=== PATIENT | female | born 1960 | race American Indian/Alaskan Native ===

== ENCOUNTER 2018-01-27 22:40 | Emergency (ER) | payer OTHER ==
[2018-01-27] MEDS: ATROVENT IH ONE (22:48)
[2018-01-27] MEDS ORDERED: MORPHINE IV ONE (23:00)
[2018-01-27] MEDS ORDERED: ZOFRAN IV ONE (23:00)
[2018-01-27] MEDS ORDERED: XOPENEX IH ONE (23:05)
[2018-01-27] MEDS ORDERED: ATROVENT IH ONE (23:06)
--- NOTE | 2018-01-27 23:08 | Emergency Department Report ---
ED Chest Pain HPI - General Chief Complaint: Dyspnea/Respdistress Stated Complaint: COPD Time Seen by Provider: 01/27/18 22:55 Source: patient Mode of arrival: Ambulatory Limitations: No Limitations - History of Present Illness Initial Comments: Patient is a 57-year-old female history of COPD. Patient presented with three- day history of left-sided chest pain, sharp in nature go to her back associated with shortness of breath. Patient denied any fever. No nausea no vomiting. MD Complaint: chest pain -: Gradual, days(s) Onset: during rest Pain Location: left chest Severity: moderate Severity scale (0 -10): 7 Quality: sharp Consistency: intermittent Improves With: remaining still Worsens With: movement Other Symptoms: cough. denies: fever, syncope - Related Data Home Medications Medication Instructions Recorded Confirmed Last Taken ALBUTEROL Inhaler [ProAir HFA 2 puff IH QID PRN 08/06/13 01/27/18 11/17/15 Inhaler] ALBUTEROL NEB's [Proventil 0.083% 2.5 mg IH TID PRN 08/06/13 01/27/18 11/17/15 NEBS] Triamter/Hctz 37.5-25 mg 1 tab PO QDAY 01/27/18 01/27/18 Unknown [Maxzide-25] Previous Rx's Medication Instructions Recorded Last Taken Type predniSONE [Deltasone] 40 mg PO QDAY #60 tablet 08/10/13 11/17/15 Rx Allergies Allergy/AdvReac Type Severity Reaction Status Date / Time No Known Allergies Allergy Verified 01/27/18 22:44 Heart Score - HEART Score History: Moderately suspicious EKG: Non-specific Age: 45-65 Risk factors: 1-2 risk factors Troponin: < normal limit HEART Score: 4 - Critical Actions Critical Actions: 4-6 pts:12-16.6% risk of adverse cardiac event. Should be admitted ED Review of Systems ROS: Stated complaint: COPD Other details as noted in HPI Comment: All other systems reviewed and negative Constitutional: denies: chills, fever Respiratory: cough, shortness of breath, SOB with exertion, SOB at rest, wheezing Cardiovascular: chest pain, dyspnea on exertion. denies: palpitations Gastrointestinal: denies: abdominal pain, nausea, vomiting, diarrhea, constipation, hematemesis, hematochezia Musculoskeletal: denies: back pain, joint swelling Neurological: denies: headache, weakness, numbness, paresthesias, confusion, abnormal gait ED Past Medical Hx - Past Medical History Hx Hypertension: Yes Hx COPD: Yes (no home O2) - Surgical History Additional Surgical History: Hysterectomy (partial). Hernia repair. Cervical spine surgery - Social History Smoking Status: Current Every Day Smoker Substance Use Type: None - Medications Home Medications: Home Medications Medication Instructions Recorded Confirmed Last Taken Type ALBUTEROL Inhaler [ProAir HFA 2 puff IH QID PRN 08/06/13 01/27/18 11/17/15 History Inhaler] ALBUTEROL NEB's [Proventil 0.083% 2.5 mg IH TID PRN 08/06/13 01/27/18 11/17/15 History NEBS] predniSONE [Deltasone] 40 mg PO QDAY #60 tablet 08/10/13 01/27/18 11/17/15 Rx Triamter/Hctz 37.5-25 mg 1 tab PO QDAY 01/27/18 01/27/18 Unknown History [Maxzide-25] ED Physical Exam - General Limitations: No Limitations General appearance: alert, in no apparent distress - Head Head exam: Present: atraumatic, normocephalic, normal inspection - Eye Eye exam: Present: normal appearance, PERRL - ENT ENT exam: Present: normal exam, normal orophraynx, mucous membranes moist - Neck Neck exam: Present: normal inspection, full ROM. Absent: tenderness, meningismus, lymphadenopathy, thyromegaly - Respiratory Respiratory exam: Present: normal lung sounds bilaterally, wheezes, chest wall tenderness, prolonged expiratory. Absent: respiratory distress, rales, rhonchi , accessory muscle use, decreased breath sounds - Cardiovascular Cardiovascular Exam: Present: regular rate, normal rhythm, normal heart sounds - GI/Abdominal GI/Abdominal exam: Present: soft, normal bowel sounds. Absent: distended, tenderness, guarding, rebound, rigid, organomegaly, mass, bruit, pulsatile mass - Extremities Exam Extremities exam: Present: normal inspection, full ROM, normal capillary refill - Back Exam Back exam: Present: normal inspection, full ROM. Absent: tenderness, CVA tenderness (L) - Neurological Exam Neurological exam: Present: alert, oriented X3, CN II-XII intact, normal gait - Skin Skin exam: Present: warm, intact, normal color ED Course Vital Signs 01/27/18 01/27/18 01/27/18 22:44 23:25 23:33 Temperature 98.1 F Pulse Rate 99 H Respiratory 22 22 22 Rate Blood Pressure 136/89 O2 Sat by Pulse 96 96 Oximetry - Reevaluation(s) Reevaluation #1: 01/28/18 00:43 Patient stated that she is feeling much better, has been resolved. No shortness of breath. I advised patient to follow-up with her primary care physician in the next 2-3 days. ED Medical Decision Making - Lab Data Result diagrams: 01/27/18 23:02 01/27/18 23:02 - EKG Data -: EKG Interpreted by [place] EKG shows normal: sinus rhythm Rate: normal - EKG Data Interpretation: no acute changes - Radiology Data Radiology results: report reviewed - Medical Decision Making Referring Physician: INES TOLLIVER Patient Name: SANA RIVAS Date of : 1960 Sex: Female Report Date: 2018-01-28 Report Status: Finalized Findings [facility] [address] [place] [address] XRay Report Signed Patient: SANA RIVAS MR#: [id number] : 1960 Acct:[id number] Age/Sex: 57 / F ADM Date: 01/27/18 Loc: ED Attending Dr: Ordering Physician: INES TOLLIVER Date of Service: 01/27/18 Procedure(s): XR chest 1V ap Accession Number(s): [id number] cc: INES TOLLIVER Fluoro Time In Minutes: FINAL REPORT PROCEDURE: XR CHEST 1V AP TECHNIQUE: Chest radiograph anteroposterior view. CPT 98474 HISTORY: Shortness of breath COMPARISON: No prior studies are available for comparison. FINDINGS: Heart: Normal. Mediastinum/Vessels: Normal. Lungs/Pleural space: Normal. Bony thorax: No acute osseous abnormality. Life support devices: None. IMPRESSION: No acute cardiopulmonary abnormality. Transcribed By: [facility] Dictated By: BARAK QUINN MD Electronically Authenticated By: BARAK QUINN MD Signed Date/Time: 01/28/18 0007 DD/ TD/TT: 01/28/186 Critical care attestation.: If time is entered above; I have spent that time in minutes in the direct care of this critically ill patient, excluding procedure time. ED Disposition Clinical Impression: Chest pain, Acute bronchitis, Costochondritis, acute Disposition: DC-01 TO HOME OR SELFCARE Is pt being admited?: No Condition: Stable Instructions: Chest Pain (ED), Acute Bronchitis (ED), Costochondritis (ED) Referrals: CEM CLAROS MD [Primary Care Provider] - 3-5 Days
[2018-01-27 23:34] LABS: BUN/Creatinine Ratio 24; Blood Urea Nitrogen 17 mg/dL (7-17); Calcium 8.9 mg/dL (8.4-10.2); Hemolysis Index 15
[2018-01-27 23:51] LABS: Basophils # (Auto) 0.1 K/mm3 (0.0-0.1); Basophils % (Auto) 0.9 % (0.0-1.8); Eosinophils # (Auto) 0.5 K/mm3 (0.0-0.4); Eosinophils % (Auto) 3.9 % (0.0-4.3); Hematocrit 38.6 % (30.3-42.9); Hemoglobin 12.6 gm/dl (10.1-14.3); Lymphocytes # (Auto) 2.3 K/mm3 (1.2-5.4); Lymphocytes % (Auto) 19.5 % (13.4-35.0); Mean Corpuscular HGB Conc 33 % (30-34); Mean Corpuscular Hemoglobin 27 pg (28-32); Mean Corpuscular Volume 84 fl (79-97); Monocytes # (Auto) 0.7 K/mm3 (0.0-0.8); Monocytes % (Auto) 5.8 % (0.0-7.3); Platelet Count 341 K/mm3 (140-440); Red Blood Count 4.63 M/mm3 (3.65-5.03)
[2018-01-28 00:04] LABS: INR 0.83 (0.87-1.13)
--- NOTE | 2018-01-28 00:12 | XRay Report ---
FINAL REPORT PROCEDURE: XR CHEST 1V AP TECHNIQUE: Chest radiograph anteroposterior view. CPT 32659 HISTORY: Shortness of breath COMPARISON: No prior studies are available for comparison. FINDINGS: Heart: Normal. Mediastinum/Vessels: Normal. Lungs/Pleural space: Normal. Bony thorax: No acute osseous abnormality. Life support devices: None. IMPRESSION: No acute cardiopulmonary abnormality.
[2018-01-28] MEDS ORDERED: LEVAQUIN PO ONE (00:47)
[2018-01-28 04:15] VITALS: BP 138/75
[2018-01-28] MEDS ORDERED: XOPENEX IH ONE (06:46)
[2018-01-28] MEDS: ATROVENT IH ONE (06:48)
== END 2018-01-28 04:15 | disposition home or self-care (01) ==
LOC: ED 22:40
DX: J20.9 Acute bronchitis, unspecified (principal); J44.0 Chronic obstructive pulmonary disease with (acute) lower respiratory infection; M94.0 Chondrocostal junction syndrome [Tietze]; I10 Essential (primary) hypertension; F17.200 Nicotine dependence, unspecified, uncomplicated; Z90.710 Acquired absence of both cervix and uterus
CPT/HCPCS: 36415; 71045; 80048; 83880; 84484; 85025; 85379; 85610; 85730; 87040; 93005; 93010; 94640; 96374; 96375; 99284; J2270; J2405; J2930

== ENCOUNTER 2018-07-08 05:52 | Emergency (ER) | payer OTHER ==
[2018-07-08] MEDS ORDERED: TORADOL ONE (06:08)
[2018-07-08] MEDS ORDERED: TORADOL IM ONE (06:18)
--- NOTE | 2018-07-08 07:12 | XRay Report ---
FINAL REPORT EXAM: XR HAND 2V RT HISTORY: right hand pain COMPARISONS: None. FINDINGS: AP and lateral views right hand Suggested mild motion artifact. No fracture, gross malalignment or deformity identified in the right hand. Diffuse mild interphalangeal osteoarthrosis. No erosion or abnormal soft tissue calcification. IMPRESSION: No fracture or gross malalignment in the right hand.
--- NOTE | 2018-07-08 07:13 | XRay Report ---
FINAL REPORT EXAM: XR FOREARM RT HISTORY: Right mid forarm pain COMPARISONS: None. FINDINGS: AP and lateral views right forearm The radius and ulna appear intact. No gross malalignment or deformity. No fracture or periosteal reaction identified. No abnormal soft tissue calcification. IMPRESSION: Intact appearance of the right radius and ulna.
--- NOTE | 2018-07-08 08:21 | Emergency Department Report ---
ED Upper Extremity Inj HPI - General Chief Complaint: Extremity Injury, Upper Stated Complaint: LT ARM PAIN Time Seen by Provider: 07/08/18 07:19 Source: patient Mode of arrival: Ambulatory Limitations: No Limitations - History of Present Illness Initial Comments: This is a 58-year-old -[place] female who presents with pain to right hand and wrist on awakening this morning. Patient states she woke up out of sleep around 2 AM with severe pain to right wrist and hand. Patient states it was painful to move wrist and pain was 10 out of 10 on pain scale. Patient describes pain as sharp and constant intensity. 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 Patient states pain is shooting from right wrist to hand. Pain is aggravated by movement. She denies injury, swelling, deformity, warmth, numbness or tingling. Complaint: Injury to:: right, wrist -: This morning Time: 02:00 Other Extremity Injury: Wrist: Right Other Injuries: none Handedness: right Place: home Severity scale (0 -10): 10 Improves With: none Worsens With: movement of extremity Associated Symptoms: denies other symptoms - Related Data Home Medications Medication Instructions Recorded Confirmed Last Taken ALBUTEROL Inhaler [ProAir HFA 2 puff IH QID PRN 08/06/13 01/27/18 11/17/15 Inhaler] ALBUTEROL NEB's [Proventil 0.083% 2.5 mg IH TID PRN 08/06/13 01/27/18 11/17/15 NEBS] Triamter/Hctz 37.5-25 mg 1 tab PO QDAY 01/27/18 01/27/18 Unknown [Maxzide-25] Previous Rx's Medication Instructions Recorded Last Taken Type predniSONE [Deltasone] 40 mg PO QDAY #60 tablet 08/10/13 11/17/15 Rx ALBUTEROL Inhaler [ProAir HFA 2 puff IH QID PRN #1 inhalation 01/28/18 Unknown Rx Inhaler] Ondansetron [Zofran Odt] 4 mg PO Q8HR PRN #14 tab.rapdis 01/28/18 Unknown Rx levoFLOXacin [Levaquin TAB] 500 mg PO QDAY #6 tablet 01/28/18 Unknown Rx predniSONE [Prednisone] 20 mg PO DAILY #14 tablet 01/28/18 Unknown Rx traMADol [Ultram 50 MG tab] 50 mg PO Q4HR PRN #14 tablet 01/28/18 Unknown Rx Ibuprofen [Motrin 800 MG tab] 800 mg PO Q8HR PRN #15 tablet 07/08/18 Unknown Rx traMADol [Ultram 50 MG tab] 50 mg PO Q6HR PRN #10 tablet 07/08/18 Unknown Rx Allergies Allergy/AdvReac Type Severity Reaction Status Date / Time No Known Allergies Allergy Verified 01/27/18 22:44 ED Review of Systems ROS: Stated complaint: LT ARM PAIN Other details as noted in HPI ED Past Medical Hx - Past Medical History Hx Hypertension: Yes Hx COPD: Yes (no home O2) - Surgical History Additional Surgical History: Hysterectomy (partial). Hernia repair. Cervical spine surgery - Social History Smoking Status: Current Every Day Smoker Substance Use Type: None - Medications Home Medications: Home Medications Medication Instructions Recorded Confirmed Last Taken Type ALBUTEROL Inhaler [ProAir HFA 2 puff IH QID PRN 08/06/13 01/27/18 11/17/15 History Inhaler] ALBUTEROL NEB's [Proventil 0.083% 2.5 mg IH TID PRN 08/06/13 01/27/18 11/17/15 History NEBS] predniSONE [Deltasone] 40 mg PO QDAY #60 tablet 08/10/13 01/27/18 11/17/15 Rx Triamter/Hctz 37.5-25 mg 1 tab PO QDAY 01/27/18 01/27/18 Unknown History [Maxzide-25] ALBUTEROL Inhaler [ProAir HFA 2 puff IH QID PRN #1 inhalation 01/28/18 Unknown Rx Inhaler] Ondansetron [Zofran Odt] 4 mg PO Q8HR PRN #14 tab.rapdis 01/28/18 Unknown Rx levoFLOXacin [Levaquin TAB] 500 mg PO QDAY #6 tablet 01/28/18 Unknown Rx predniSONE [Prednisone] 20 mg PO DAILY #14 tablet 01/28/18 Unknown Rx traMADol [Ultram 50 MG tab] 50 mg PO Q4HR PRN #14 tablet 01/28/18 Unknown Rx Ibuprofen [Motrin 800 MG tab] 800 mg PO Q8HR PRN #15 tablet 08/27/18 Unknown Rx traMADol [Ultram 50 MG tab] 50 mg PO Q6HR PRN #10 tablet 07/08/18 Unknown Rx ED Physical Exam - General Limitations: No Limitations General appearance: alert, in no apparent distress - Respiratory Respiratory exam: Present: normal lung sounds bilaterally. Absent: respiratory distress - Cardiovascular Cardiovascular Exam: Present: regular rate, normal rhythm. Absent: systolic murmur, diastolic murmur, rubs, gallop - GI/Abdominal GI/Abdominal exam: Present: soft, normal bowel sounds - Expanded Upper Extremity Exam Right Shoulder Exam: Present: normal inspection, full ROM Upper Arm exam: Present: normal inspection, full ROM Elbow exam: Present: normal inspection, full ROM Forearm Wrist exam: Present: full ROM. Absent: tenderness, swelling, abrasion, laceration, ecchymosis, deformity, crepidus, dislocation, erythema, tenderness over anatomical snuff box, pain with axial thumb loading Hand Wrist exam: Present: tenderness (positive tinel's sign at wrist, phalen's test positive). Absent: swelling, abrasion, laceration, ecchymosis, deformity, crepidus, dislocation, erythema, amputation, nail avulsion, subungual hematoma Neuro motor exam: Present: wrist extension intact, thumb opposition intact, thumb IP flexion intact, thumb adduction intact, fingers 2-5 abduction intact Neurosensory exam: Present: radial nerve intact, ulnar nerve intact, median nerve intact Vascular: Present: normal capillary refill, radial pulse - Neurological Exam Neurological exam: Present: alert, oriented X3 - Psychiatric Psychiatric exam: Present: normal affect, normal mood - Skin Skin exam: Present: warm, dry, intact, normal color. Absent: rash ED Course Vital Signs 07/08/18 06:01 Temperature 99.1 F Pulse Rate 75 Respiratory 18 Rate Blood Pressure 174/87 O2 Sat by Pulse 97 Oximetry ED Medical Decision Making - Radiology Data Radiology results: report reviewed, image reviewed FINAL REPORT EXAM: XR FOREARM RT HISTORY: Right mid forarm pain COMPARISONS: None. FINDINGS: AP and lateral views right forearm The radius and ulna appear intact. No gross malalignment or deformity. No fracture or periosteal reaction identified. No abnormal soft tissue calcification. IMPRESSION: Intact appearance of the right radius and ulna. - Medical Decision Making Patient was examined by me. Vitals are normal and patient is in no acute distress. Obtained x-rays of right wrist and forearm.. X-rays dictated by radiologist and no acute findings. Patient informed of results. Patient given Toradol 30 mg IM while in ER. Wrist brace applied to right. Patient instructed to splint at night. Findings susceptible of carpal tunnel syndrome. Start ibuprofen and Tramadol for pain. Plan discussed with patient to discharge home and treat outpatient. He agrees with ER plan. Patient discharged home in stable condition. Follow up with PCP in 2-3 days. Critical care attestation.: If time is entered above; I have spent that time in minutes in the direct care of this critically ill patient, excluding procedure time. ED Disposition Clinical Impression: Right wrist pain, Carpal tunnel syndrome of right wrist Disposition: TO HOME OR SELFCARE Is pt being admited?: No Does the pt Need Aspirin: No Condition: Stable Instructions: Carpal Tunnel Syndrome (ED) Additional Instructions: Take pain medication every 6 hours as needed for pain. Wear wrist brace for added support. Follow-up with orthopedic surgery if symptoms are not improving as discusses N1 to 2 weeks. Prescriptions: Ibuprofen [Motrin 800 MG tab] 800 mg PO Q8HR PRN #15 tablet PRN Reason: Pain, Moderate (4-6) traMADol [Ultram 50 MG tab] 50 mg PO Q6HR PRN #10 tablet PRN Reason: Pain Referrals: SHELTON SAENZ MD [Staff Physician] - 3-5 Days ALEJANDRA JIANG MD [Staff Physician] - 3-5 Days [facility] [Provider Group] - 3-5 Days Forms: Work/School Release Form(ED) Time of Disposition: 08:21 Print Language: GREENLANDIC
[2018-07-08 08:37] VITALS: BP 164/81
== END 2018-07-08 08:36 | disposition home or self-care (01) ==
LOC: ED 05:52
DX: G56.01 Carpal tunnel syndrome, right upper limb (principal); I10 Essential (primary) hypertension; J44.9 Chronic obstructive pulmonary disease, unspecified; F17.200 Nicotine dependence, unspecified, uncomplicated; Z90.711 Acquired absence of uterus with remaining cervical stump
CPT/HCPCS: 29260; 73090; 73120; 96372; 99283; J1885

== ENCOUNTER 2021-09-27 11:51 | Outpatient (CLI) | payer OTHER ==
--- NOTE | 2021-09-28 08:48 | Mammography Report ---
DIGITAL SCREENING MAMMOGRAM WITH CAD, 09/27/2021 CLINICAL INFORMATION / INDICATION: Routine screening mammography. SCREENING MAMMOGRAM TECHNIQUE: Digital bilateral 2D mammography was obtained in the craniocaudal and mediolateral obliqu e projections. This examination was interpreted with the benefit of Computer-Aided Detection analysis . COMPARISON: None FINDINGS: Breast Density: The breasts are heterogeneously dense, which may obscure small masses. No dominant mass, suspicious calcifications, or architectural distortion in either breast. IMPRESSION: No mammographic evidence of malignancy. Follow up recommendation: Routine yearly BI-RADS Category 1: Negative. A "normal" or negative report should not discourage follow up or biopsy of a clinically significant f inding. A written summary of these findings will be mailed to the patient. The patient will be entered into a mammography reporting system which will generate a reminder letter for the patient's next appointmen t at the appropriate interval. The [employer] recommends yearly mammograms starting at age 40 and continuing as l noy as a woman is in good health. Breast MRI is recommended for women with an approximate 20-25% or greater lifetime risk of breast cancer, including women with a strong family history of breast or ova sergio cancer or who have been treated for Hodgkin's disease. Signer Name: Kyle Monaco MD Signed: 09/28/2021 8:44 AM Workstation Name: [id number]
== END 2021-09-27 11:52 | disposition home or self-care (01) ==
LOC: MAMMO 11:51
PROVIDERS: ATTEND Internal Medicine
DX: Z12.31 Encounter for screening mammogram for malignant neoplasm of breast (principal)
CPT/HCPCS: 77067